=== PATIENT | female | born 2000 | race Caucasian/White ===

== ENCOUNTER 2023-01-03 17:35 | Inpatient (IN) ==
[2023-01-03] MEDS ORDERED: Patient's ALLERGY Info needs ENTERED SCH (18:00)
--- NOTE | 2023-01-03 18:18 | ED Triage Note ---
Date of Service January 03, 2023 History of Present Illness This patient was briefly evaluated while in triage. An abbreviated physical exam was performed. This patient is a 22-year-old Female who presents to the ED for evaluation of nausea and diarrhea. States symptoms started today.She reports 3 episodes of black watery stool. Notes diffuse abdominal cramping. She denies fevers/chills, vomiting, chest pain, SOB, urinary symptoms. Physical Exam Constitutional: alert and oriented x3. no acute distress. HEENT: normocephalic, atraumatic. normal conjunctiva.PERRLA. EOM's grossly intact. Respiratory: lungs are clear to auscultation without wheezes, rhonchi, or rales bilaterally. equal chest rise. normal respiratory effort, no accessory muscle use. Cardiovascular: normal heart sounds without murmur. regular rate and rhythm. GI: abdomen is soft, nondistended. Mild diffuse abdominal tenderness. No palpable masses. No rebound tenderness or guarding. MSK: moves all 4 extremities spontaneously Psych:appropriate mood and affect. Initial orders for labs and / or imaging were placed and patient was placed in the waiting area until a bed is available. Please see further documentation for the full ED course.
[2023-01-03] MEDS ORDERED: SODIUM CHLORIDE 0.9% 1000ML 2,000 ML IV ONE (19:11)
[2023-01-03] MEDS ORDERED: PANTOprazole 80 MG in DEXTROSE 5% 100 ML IV ONE (19:11)
[2023-01-03] MEDS ORDERED: METOCLOPRAMIDE HCL INJ 5 MG/ML 2 ML VIAL IV STA (19:11)
[2023-01-03] MEDS ORDERED: PANTOPRAZOLE BOLUS/DRIP 1 EACH IV STA (19:11)
[2023-01-03] MEDS ORDERED: SODIUM CHLORIDE 0.9% 250 ML IV PRN (19:11)
[2023-01-03 19:14] LABS: Basophils # (auto) 0.05 K/uL (0-0.2); Basophils % (auto) 0.3 %; Eosinophils # (auto) 0.01 K/uL (0-0.50); Eosinophils % (auto) 0.1 %; Hematocrit (blood only) 39.5 % (37.0-47.0); Hemoglobin 13.6 g/dl (12.0-16.0); Immature Granulocytes # (auto) 0.06 K/uL (0.01-0.20); Immature Granulocytes % (auto) 0.3 %; Lymphocytes # (auto) 2.25 K/uL (1.2-3.4); Lymphocytes % (auto) 12.7 %; Mean Corpuscular Hemoglobin 29.9 pg (25.0-34.0); Mean Corpuscular Hgb Conc 34.4 g/dL (32.0-36.0); Mean Corpuscular Volume 86.8 fL (80.0-100.0); Mean Platelet Volume 10.2 fL (9.4-12.4); Monocytes # (auto) 0.93 K/uL (0.11-0.59); Monocytes % (auto) 5.2 %; Neutrophils # (auto) 14.42 K/uL (1.40-6.50); Neutrophils % (auto) 81.4 %; Platelet Count 270 K/uL (130-400); RDW Coefficient of Variation 12.3 % (11.5-14.5); RDW Standard Deviation 38.9 fL (36.4-46.3); Red Blood Count 4.55 M/uL (4.20-5.40); White Blood Count 17.72 K/ul (4.8-10.8)
--- NOTE | 2023-01-03 19:17 | Emergency Department Note ---
Impression & Plan GI bleed, Leukocytosis ED Provider Note NAME: LEOBARDO DEXTER AGE: 22 SEX: F : 2000 ARRIVES VIA: Walk-In INFORMANT: Patient ED PROVIDER(S): Sanya Bourgeois DO CHIEF COMPLAINT: N/V/D HPI: Patient is a 20-year-old female who presents to the ER for nausea, vomiting, diarrhea which started earlier today. She notes that this started while working at [employer]. She notes her stools are black and her vomit is black. She denies any headache or change in vision. No chest pain or shortness of breath. No belly pain but admits to persistent vomiting and diarrhea. No dysuria, urgency, or frequency. Last menstrual period was about a week ago. She denies any steroid or NSAID use. She drinks about a drink every other night. No control. PAST MEDICAL HISTORY:See Below PAST SURGICAL HISTORY:See Below FAMILY HISTORY:See Below SOCIAL HISTORY:See Below HOME MEDICATIONS:See Below ALLERGIES:See Below VITALS:See Below PHYSICAL EXAMINATION: GENERAL: Sitting up in bed, alert, slightly ill-appearing, vomiting black material EYE EXAM: normal conjunctiva. OROPHARYNX: mucous membranes are moist NECK: supple, no nuchal rigidity, no adenopathy, non-tender LUNGS: Clear to auscultation. Normal chest wall mechanics HEART: no murmurs, S1 normal and S2 normal ABDOMEN: abdomen soft, non-tender, normo-active bowel sounds, no masses, no rebound or guarding. UPPER EXTREMITIES: upper extremities are grossly normal. LOWER EXTREMITIES: No pitting edema. NEURO EXAM: Normal sensorium, cranial nerves II-XII grossly intact, normal speech, no gross weakness of arms, no gross weakness of legs. MEDICAL DECISION MAKING: Patient 20-year-old female who presents ER for above-stated complaint. IV was established blood work was obtained. External records were reviewed. Labs show leukocytosis 17,000. No significant anemia. INR was unremarkable. BMP with mild hyponatremia 134. LFTs bilirubin was unremarkable. Lipase was normal. hCG was negative. UA was clean. was negative. Stool culture was negative. COVID-negative. Patient was typed and crossed for 2 units of PRBCs as she vomited about 500 cc of dark vomit. . CT abdomen pelvis showed no acute pathology. She was placed on Protonix drip and bolus. She was given 2 L of IV fluids. 2 large-bore IVs were placed. Contacted gastroenterology. He has an upper GI bleed. As she likely has an upper GI bleed. Discussed with Dr. Galvez and he agreed with admission and he will follow and evaluate the patient in the morning unless the status changes. Discussed with the hospitalist for further evaluation management treatment. Triage Nursing notes reviewed. Limited review of prior medical records performed Vital Signs: reviewed and remarkable for tachy Differential diagnosis: Differential diagnoses includes but is not limited to gastritis, peptic ulcer disease, GERD, gallbladder disease, pancreatitis, small bowel obstruction, appendicitis, diverticulitis, hernia, urinary tract infection, torsion, [/ectopic (if female)], perforation, trauma, infectious. ER treatment provided: See below Diagnostics interpreted by me include EKG and cardiac monitoring as listed below: -Cardiac Monitoring: An order was placed for continuous cardiac monitoring. The monitor shows a rate of 115 with sinus rhythm. -ECG: none -Laboratory studies:Interpreted by me as stated above in MDM and shown below. Imaging studies: Xrays: As interpreted by me:none CTs show: CT abdomen pelvis per my read showed no obvious obstruction Consultation(s): As described in MDM Procedures:none Critical Care: None Past Med/Surg History Social History Smoking Status: Current every day smoker Second Hand Exposure: No; Do You Dip or Chew Tobacco: No; Tobacco Cessation Education Requested by Patient: No Hx Alcohol Use: Yes Alcohol type: beer Hx Substance Use: Yes Preferred Language: Persian Communication Ability: Effective Cutter Grinder Required: No Beliefs That Will Affect Care: None Current Living Situation: Alone Other Information That Helps Us Care for You: No Feels Safe at Home: Yes Safety Concerns: Feels Safe At This Time Assistive Devices: Glasses Allergies Allergies Allergy/AdvReac Type Severity Reaction Status Date / Time gabapentin AdvReac Insomnia Verified 01/03/23 22:46 Home Meds Home Medications Medication Instructions Recorded Confirmed No Known Home Medications 01/03/23 01/03/23 Results & Data (ED) Vital Signs Vital Signs - 24 hr 01/03/23 18:14 01/03/23 19:16 01/03/23 19:31 Temperature 36.5 C Temperature Source Temporal Artery Scan Pulse Rate 120 H 104 H 89 Respiratory Rate 16 20 Respiratory Effort / Characteristics Non-Labored Respiratory Depth Normal Blood Pressure 135/97 108/69 Blood Pressure Mean 109 82 Pulse Oximetry 99 100 Oxygen Delivery Method Room Air Room Air Sepsis Recent Fever Within 48 Hours No Sepsis New/Unexplained Change in Mental Status No Sepsis Action Taken by Nursing No Action Required 01/03/23 20:04 Temperature Temperature Source Pulse Rate 89 Respiratory Rate 17 Respiratory Effort / Characteristics Respiratory Depth Blood Pressure 114/78 Blood Pressure Mean 90 Pulse Oximetry 99 Oxygen Delivery Method Room Air Sepsis Recent Fever Within 48 Hours Sepsis New/Unexplained Change in Mental Status Sepsis Action Taken by Nursing Laboratory Data 01/03/23 18:45 01/03/23 18:45 Lab Results 01/03/23 01/03/23 01/03/23 Range/Units 18:45 18:45 18:45 WBC 17.72 H (4.8-10.8) K/ul RBC 4.55 (4.20-5.40) M/uL Hgb 13.6 (12.0-16.0) g/dl Hct 39.5 (37.0-47.0) % MCV 86.8 (80.0-100.0) fL MCH 29.9 (25.0-34.0) pg MCHC 34.4 (32.0-36.0) g/dL RDW Std Deviation 38.9 (36.4-46.3) fL RDW Coeff of Geri 12.3 (11.5-14.5) % Plt Count 270 (130-400) K/uL MPV 10.2 (9.4-12.4) fL Immature Gran % (Auto) 0.3 % Neut % (Auto) 81.4 % Lymph % (Auto) 12.7 % Kidder % (Auto) 5.2 % Eos % (Auto) 0.1 % Baso % (Auto) 0.3 % Neut # (Auto) 14.42 H (1.40-6.50) K/uL Lymph # (Auto) 2.25 (1.2-3.4) K/uL Kidder # (Auto) 0.93 H (0.11-0.59) K/uL Eos # (Auto) 0.01 (0-0.50) K/uL Baso # (Auto) 0.05 (0-0.2) K/uL Immature Gran # (Auto) 0.06 (0.01-0.20) K/uL PT (9.0-12.0) Seconds INR (0.9-1.1) Sodium 134 L (136-145) mmol/L Potassium 3.6 (3.5-5.1) mmol/L Chloride 102 (98-107) mmol/L Carbon Dioxide 25 (21-32) mmol/L Anion Gap 7 (3-11) BUN 23 (6-23) mg/dl Creatinine 0.54 L (0.6-1.2) mg/dl Est Cr Clr Drug Dosing 139.3 ml/min Est GFR ( Amer) > 150.0 ml/min Est GFR (Non-Af Amer) 133.9 ml/min BUN/Creatinine Ratio 42.6 H (10-20) Glucose 93 (70-99(Fasting)) mg/dl Calcium 9.1 (8.6-10.3) mg/dl Total Bilirubin 0.4 (0.2-1.0) mg/dl AST 16 (13-39) U/L ALT 10 (7-52) U/L Alkaline Phosphatase 63 (34-104) U/L Total Protein 7.6 (6.0-8.3) gm/dl Albumin 5.0 (3.4-5.0) gm/dl Globulin 2.6 (2.5-4.0) gm/dl Albumin/Globulin Ratio 1.9 (0.9-2) Lipase 6 L (11-82) U/L HCG, Qual Negative (Negative) Urine Color Urine Appearance (Clear) Urine pH (4.5-7.5) Ur Specific Channing (1.000-1.030) Urine Protein (Negative) Urine Glucose (UA) (Negative) Urine Ketones (Negative) Urine Blood (Negative) Urine Nitrite (Negative) Urine Bilirubin (Negative) Urine Urobilinogen (Negative) Ur Leukocyte Esterase (Negative) Urine WBC (Auto) (0-5) /hpf Urine RBC (Auto) (0-4) /hpf U Hyaline Cast (Auto) (0-5) /lpf U Epithel Cells (Auto) (0-5) /lpf Urine Bacteria (Auto) (Negative) Stl C. cayetanensis PCR (NotDetected) Stool Rotavirus A PCR (NotDetected) Stl Adenov F 40/41 PCR (NotDetected) Stool Astrovirus (PCR) (NotDetected) Stool Campylobacter PCR (NotDetected) Stool Cryptosporidium PCR (NotDetected) Stl E.coli Shiga Tox PCR (NotDetected) Stl Enterotoxigenic E PCR (NotDetected) Stool EPEC (PCR) (NotDetected) Stool EAEC (PCR) (NotDetected) Stl E. histolytica PCR (NotDetected) Stool Giardia Lamblia PCR (NotDetected) Stool Salmonella PCR (NotDetected) Stool Sapovirus (PCR) (NotDetected) Stl P. shigelloides PCR (NotDetected) Stl Shigella/EIEC PCR (NotDetected) St Y.enterocolitica PCR (NotDetected) Stool Vibrio (PCR) (NotDetected) Stl Vibrio cholerae PCR (NotDetected) Stl Norovirus GI/GII PCR (NotDetected) Blood Type Antibody Screen Crossmatch 01/03/23 01/03/23 01/03/23 Range/Units 18:45 19:47 20:11 WBC (4.8-10.8) K/ul RBC (4.20-5.40) M/uL Hgb (12.0-16.0) g/dl Hct (37.0-47.0) % MCV (80.0-100.0) fL MCH (25.0-34.0) pg MCHC (32.0-36.0) g/dL RDW Std Deviation (36.4-46.3) fL RDW Coeff of Geri (11.5-14.5) % Plt Count (130-400) K/uL MPV (9.4-12.4) fL Immature Gran % (Auto) % Neut % (Auto) % Lymph % (Auto) % Kidder % (Auto) % Eos % (Auto) % Baso % (Auto) % Neut # (Auto) (1.40-6.50) K/uL Lymph # (Auto) (1.2-3.4) K/uL Kidder # (Auto) (0.11-0.59) K/uL Eos # (Auto) (0-0.50) K/uL Baso # (Auto) (0-0.2) K/uL Immature Gran # (Auto) (0.01-0.20) K/uL PT 11.9 (9.0-12.0) Seconds INR 1.1 (0.9-1.1) Sodium (136-145) mmol/L Potassium (3.5-5.1) mmol/L Chloride (98-107) mmol/L Carbon Dioxide (21-32) mmol/L Anion Gap (3-11) BUN (6-23) mg/dl Creatinine (0.6-1.2) mg/dl Est Cr Clr Drug Dosing ml/min Est GFR ( Amer) ml/min Est GFR (Non-Af Amer) ml/min BUN/Creatinine Ratio (10-20) Glucose (70-99(Fasting)) mg/dl Calcium (8.6-10.3) mg/dl Total Bilirubin (0.2-1.0) mg/dl AST (13-39) U/L ALT (7-52) U/L Alkaline Phosphatase (34-104) U/L Total Protein (6.0-8.3) gm/dl Albumin (3.4-5.0) gm/dl Globulin (2.5-4.0) gm/dl Albumin/Globulin Ratio (0.9-2) Lipase (11-82) U/L HCG, Qual (Negative) Urine Color Yellow Urine Appearance Cloudy A (Clear) Urine pH 6.0 (4.5-7.5) Ur Specific Channing 1.018 (1.000-1.030) Urine Protein Negative (Negative) Urine Glucose (UA) Negative (Negative) Urine Ketones 2+ H (Negative) Urine Blood Trace H (Negative) Urine Nitrite Negative (Negative) Urine Bilirubin Negative (Negative) Urine Urobilinogen Negative (Negative) Ur Leukocyte Esterase Negative (Negative) Urine WBC (Auto) 1-5 (0-5) /hpf Urine RBC (Auto) 0-4 (0-4) /hpf U Hyaline Cast (Auto) 0 (0-5) /lpf U Epithel Cells (Auto) >30 H (0-5) /lpf Urine Bacteria (Auto) Negative (Negative) Stl C. cayetanensis PCR (NotDetected) Stool Rotavirus A PCR (NotDetected) Stl Adenov F 40/41 PCR (NotDetected) Stool Astrovirus (PCR) (NotDetected) Stool Campylobacter PCR (NotDetected) Stool Cryptosporidium PCR (NotDetected) Stl E.coli Shiga Tox PCR (NotDetected) Stl Enterotoxigenic E PCR (NotDetected) Stool EPEC (PCR) (NotDetected) Stool EAEC (PCR) (NotDetected) Stl E. histolytica PCR (NotDetected) Stool Giardia Lamblia PCR (NotDetected) Stool Salmonella PCR (NotDetected) Stool Sapovirus (PCR) (NotDetected) Stl P. shigelloides PCR (NotDetected) Stl Shigella/EIEC PCR (NotDetected) St Y.enterocolitica PCR (NotDetected) Stool Vibrio (PCR) (NotDetected) Stl Vibrio cholerae PCR (NotDetected) Stl Norovirus GI/GII PCR (NotDetected) Blood Type O Positive Antibody Screen NEGATIVE Crossmatch See Detail 01/03/23 Range/Units 20:11 WBC (4.8-10.8) K/ul RBC (4.20-5.40) M/uL Hgb (12.0-16.0) g/dl Hct (37.0-47.0) % MCV (80.0-100.0) fL MCH (25.0-34.0) pg MCHC (32.0-36.0) g/dL RDW Std Deviation (36.4-46.3) fL RDW Coeff of Geri (11.5-14.5) % Plt Count (130-400) K/uL MPV (9.4-12.4) fL Immature Gran % (Auto) % Neut % (Auto) % Lymph % (Auto) % Kidder % (Auto) % Eos % (Auto) % Baso % (Auto) % Neut # (Auto) (1.40-6.50) K/uL Lymph # (Auto) (1.2-3.4) K/uL Kidder # (Auto) (0.11-0.59) K/uL Eos # (Auto) (0-0.50) K/uL Baso # (Auto) (0-0.2) K/uL Immature Gran # (Auto) (0.01-0.20) K/uL PT (9.0-12.0) Seconds INR (0.9-1.1) Sodium (136-145) mmol/L Potassium (3.5-5.1) mmol/L Chloride (98-107) mmol/L Carbon Dioxide (21-32) mmol/L Anion Gap (3-11) BUN (6-23) mg/dl Creatinine (0.6-1.2) mg/dl Est Cr Clr Drug Dosing ml/min Est GFR ( Amer) ml/min Est GFR (Non-Af Amer) ml/min BUN/Creatinine Ratio (10-20) Glucose (70-99(Fasting)) mg/dl Calcium (8.6-10.3) mg/dl Total Bilirubin (0.2-1.0) mg/dl AST (13-39) U/L ALT (7-52) U/L Alkaline Phosphatase (34-104) U/L Total Protein (6.0-8.3) gm/dl Albumin (3.4-5.0) gm/dl Globulin (2.5-4.0) gm/dl Albumin/Globulin Ratio (0.9-2) Lipase (11-82) U/L HCG, Qual (Negative) Urine Color Urine Appearance (Clear) Urine pH (4.5-7.5) Ur Specific Channing (1.000-1.030) Urine Protein (Negative) Urine Glucose (UA) (Negative) Urine Ketones (Negative) Urine Blood (Negative) Urine Nitrite (Negative) Urine Bilirubin (Negative) Urine Urobilinogen (Negative) Ur Leukocyte Esterase (Negative) Urine WBC (Auto) (0-5) /hpf Urine RBC (Auto) (0-4) /hpf U Hyaline Cast (Auto) (0-5) /lpf U Epithel Cells (Auto) (0-5) /lpf Urine Bacteria (Auto) (Negative) Stl C. cayetanensis PCR Not Detected (NotDetected) Stool Rotavirus A PCR Not Detected (NotDetected) Stl Adenov F 40/41 PCR Not Detected (NotDetected) Stool Astrovirus (PCR) Not Detected (NotDetected) Stool Campylobacter PCR Not Detected (NotDetected) Stool Cryptosporidium PCR Not Detected (NotDetected) Stl E.coli Shiga Tox PCR Not Detected (NotDetected) Stl Enterotoxigenic E PCR Not Detected (NotDetected) Stool EPEC (PCR) Not Detected (NotDetected) Stool EAEC (PCR) Not Detected (NotDetected) Stl E. histolytica PCR Not Detected (NotDetected) Stool Giardia Lamblia PCR Not Detected (NotDetected) Stool Salmonella PCR Not Detected (NotDetected) Stool Sapovirus (PCR) Not Detected (NotDetected) Stl P. shigelloides PCR Not Detected (NotDetected) Stl Shigella/EIEC PCR Not Detected (NotDetected) St Y.enterocolitica PCR Not Detected (NotDetected) Stool Vibrio (PCR) Not Detected (NotDetected) Stl Vibrio cholerae PCR Not Detected (NotDetected) Stl Norovirus GI/GII PCR Not Detected (NotDetected) Blood Type Antibody Screen Crossmatch Administered Medications Pantoprazole Sodium 40 mg/ (Dextrose) 100 mls @ 20 mls/hr IV Q5H DEENA Stop: 02/02/23 19:29 Last Admin: 01/03/23 20:02 Dose: 8 mg/hr, 20 mls/hr Documented By: SILVINO Lactated Ringer's (Lr) 1,000 mls @ 100 mls/hr IV .Q10H DEENA Stop: 01/04/23 06:44 Last Admin: 01/03/23 21:21 Dose: 100 mls/hr Documented By: MILDRED Discontinued Medications Sodium Chloride (Nss 1000ml) 2,000 mls @ 999 mls/hr IV .Q2H1M ONE Stop: 01/03/23 21:11 Last Infusion: 01/03/23 21:20 Dose: 0 mls/hr Documented By: Admin: 01/03/23 19:19 Dose: 999 mls/hr Documented By: MILDRED Pantoprazole Sodium (Protonix Bolus/Drip) 0 mls @ 1 mls/hr IV ONE STA Stop: 01/03/23 19:12 Last Admin: 01/03/23 20:07 Dose: Not Given Documented By: MILDRED Pantoprazole Sodium 80 mg/ (Dextrose) 120 mls @ 400 mls/hr IV NOW ONE Stop: 01/03/23 19:28 Last Infusion: 01/03/23 19:55 Dose: 0 mls/hr Documented By: Admin: 01/03/23 19:34 Dose: 400 mls/hr Documented By: MILDRED Ioversol (Optiray 320 100ml) 89 ml IV ONCE ONE Stop: 01/03/23 21:09 Last Admin: 01/03/23 21:08 Dose: 89 ml Documented By: DENNIS Metoclopramide HCl (Metoclopramide Hcl Inj 5 Mg/Ml 2 Ml Vial) 10 mg IV NOW STA Stop: 01/03/23 19:12 Last Admin: 01/03/23 19:34 Dose: 10 mg Documented By: MILDRED Ondansetron HCl (Ondansetron Inj 2 Mg/Ml 2 Ml Vial) 4 mg IV NOW STA Stop: 01/03/23 22:40 Last Admin: 01/03/23 22:58 Dose: Not Given Documented By: MILDRED Ondansetron HCl (Ondansetron Inj 2 Mg/Ml 2 Ml Vial) Confirm Administered Dose 4 mg .ROUTE .STK-MED ONE Stop: 01/03/23 22:41 Last Admin: 01/03/23 22:42 Dose: 4 mg Documented By: KARLA Imaging Data Radiologist's Impression: Abdomen/Pelvis CT 01/03/23 19:11 Exam(s): CT ABDOMEN + PELVIS With Contrast IV Amt: 89 ml optiray 320 EXAM: CT Abdomen and Pelvis With Intravenous Contrast CLINICAL HISTORY: Reason for exam: Vomiting blood upper GI bleed. TECHNIQUE: Axial computed tomography images of the abdomen and pelvis with intravenous contrast. CTDI is 8.51 mGy and DLP is 370.12 mGy-cm. Automated exposure control was utilized for the study. A dose lowering technique was utilized adhering to the principles of ALARA. CONTRAST: Patient received 89 ml optiray 320 of IV contrast COMPARISON: No relevant prior studies available. FINDINGS: Lung bases: Unremarkable. No mass. No consolidation. ABDOMEN: Liver: Unremarkable. No mass. Gallbladder and bile ducts: Unremarkable. No calcified stones. No ductal dilation. Pancreas: Unremarkable. No mass. No ductal dilation. Spleen: Unremarkable. No splenomegaly. Adrenals: Unremarkable. No mass. Kidneys and ureters: There are several scattered simple cysts within the kidneys measuring up to 2.1 cm on the right. No follow-up is required. No hydronephrosis. Stomach and bowel: Bowel loops are nondilated. Colon is mostly contracted with mild diffuse wall thickening suggesting mild colitis. The stomach is unremarkable. PELVIS: Appendix: The appendix is normal. Bladder: Slight urinary bladder wall thickening could be due to a completely distended status versus cystitis. Reproductive: Unremarkable as visualized. ABDOMEN and PELVIS: Intraperitoneal space: There is enlargement of the left ovary measuring up to 4 cm with a probable 1.7 cm follicle within it. There is a small moderate of free fluid in the cul-de-sac. Consider ruptured ovarian follicle. No free air. Bones/joints: No acute fracture. No dislocation. Soft tissues: Unremarkable. Vasculature: Unremarkable. No abdominal aortic aneurysm. Lymph nodes: Unremarkable. No enlarged lymph nodes. IMPRESSION: 1. Bowel loops are nondilated. Colon is mostly contracted with mild diffuse wall thickening suggesting mild colitis. The stomach is unremarkable. No GI hemorrhage is identified. 2. There is enlargement of the left ovary measuring up to 4 cm with a probable 1.7 cm follicle within it. There is a small amount of free fluid in the cul-de-sac. Consider ruptured ovarian follicle. 3. Slight urinary bladder wall thickening could be due to a completely distended status versus cystitis. Electronically signed by: Howard Hercules MD 01/03/23 22:05 PM Discharge Plan Visit Data Chief Complaint: Diarrhea Stated Complaint: DIARRHEA, NEAR SYNCOPE, TACHYCARDIA ED Provider: Sanya Bourgeois Discharge Problem: GI bleed, Leukocytosis Patient Disposition: Admitted As Inpatient Discharge Instructions Interventions: ED Discharge Assessment Last Done: 01/03/23 22:57
[2023-01-03 19:28] LABS: Alanine Aminotransferase 10 U/L (7-52); Albumin Globulin Ratio 1.9 (0.9-2); Alkaline Phosphatase 63 U/L (34-104); Anion Gap 7 (3-11); Aspartate Aminotransferase 16 U/L (13-39); BUN Creatinine Ratio 42.6 (10-20); Bilirubin,Total 0.4 mg/dl (0.2-1.0); Blood Urea Nitrogen 23 mg/dl (6-23); Calcium 9.1 mg/dl (8.6-10.3); Carbon Dioxide 25 mmol/L (21-32); Chloride 102 mmol/L (98-107); Creatinine Clr Calc Pharmacy 139.3 ml/min; Est GFR (African American) > 150.0 ml/min; Est GFR (Non-African American) 133.9 ml/min; Globulin 2.6 gm/dl (2.5-4.0); Glucose 93 mg/dl (70-99(Fasting)); Lipase 6 U/L (11-82); Potassium 3.6 mmol/L (3.5-5.1); Sodium 134 mmol/L (136-145); Total Protein 7.6 gm/dl (6.0-8.3)
[2023-01-03 19:30] LABS: Pregnancy Test, Serum Negative (Negative)
[2023-01-03] MEDS: PANTOprazole 40 MG in DEXTROSE 5% 100 ML IV SCH (20:02)
--- NOTE | 2023-01-03 20:19 | History & Physical Report ---
Date of Service January 03, 2023 Assessment & Plan (1) GI bleed: Plan: -Admit to the PCU on tele -Currently stable -Developed sudden onset of epigastric abd pain and nausea with subsequent black bowel movements -Had multiple episodes of black emesis after ED arrival which was witnessed by ED staff -No previous GI history, no NSAID use, social drinker and daily Marijuana user -Protonix drip started in the ED, continue -GI consulted and will see her tomorrow, keep NPO until they see her -Will monitor CBC q6h moving forward, hgb stable on arrival -Type and screen, as-well-as 2 units PRBC if needed -Stool panel obtained and in process, continue to follow -Will continue her on maintenance LR overnight while NPO -Order placed for 2 large bore IV's -CT of the abd/pelvis with IV con ordered, will follow -BL SCD's for DVT PPX -AM CMP, Mag -Will obtain INR on admission and will trend tomorrow (2) Leukocytosis: Plan: -Likely reactive at this time -No fevers yet, follow fever curve Plan The patient was discussed with Dr. Hercules at the time of the admission History of Present Illness Chief Complaint: Black stool and vomit Primary Care Provider: NO PCP Inga is a 22 year old female with with no significant PMH who presented to the [facility] ED on 01/03/23 with complaints of black stool and vomit. In the ED the patient was tachycardic with HR in the low 100's but otherwise stable. Labs were significant for a leukocytosis of 17 with left shift of 14, stable Hgb of 13, sodium of 134. Per discussions with the ED staff, the patient had approximately 500 cc of black emesis after arrival. They spoke with Gastroenterology who will see the patient tomorrow. Prior to admission all CT machines were down, a CT of the abd/pelvis with IV con had been ordered prior to admission. Prior to admission the patient was started on a Protonix drip, ordered 2L NSS bolus. At the time of the exam the patient was sitting in bed in no acute distress with her friend sitting bedside. The patient states that she was in her normal state of health. She was at work this afternoon when she started to develop epigastric abd pain, nausea, and diaphoresis. She went home and had two bowel movements which she described as watery and black. Her abd pain started in the epigastric region but has moved to the lower abdomen at the time of the exam. She denies a previous hx of GI bleeds, ulcers, or other PMH besides some mental health issues in the past. At one point she was on Lamictal, gabapentin, and Ativan, put is not on prescription medications at this time. She drinks alcohol socially, with her last drink 2 nights ago. She denies NSAID use or pepto Bismol use. She does smoke marijuana daily and states that she has been diagnosed with Cannabis hyperemesis in the past. She denies any other recreational drug use. She denies recent fever, chills, sore throat, chest pain, SOB, cough, dysuria, hematuria, LE swelling and recent trauma. Please refer to Dr. Hercules's attestation for any changes to the treatment plan Allergies Allergy/AdvReac Type Severity Reaction Status Date / Time gabapentin AdvReac Insomnia Verified 01/03/23 22:46 Home Medications Medication Instructions Recorded Confirmed Type No Known Home Medications 01/03/23 01/03/23 History Past Med/Surg History Social History Smoking Status: Current every day smoker Second Hand Exposure: No; Do You Dip or Chew Tobacco: No; Tobacco Cessation Education Requested by Patient: No Hx Alcohol Use: Yes Alcohol type: beer Hx Substance Use: Yes Preferred Language: Arabic Communication Ability: Effective Poultry Packer Required: No Beliefs That Will Affect Care: None Current Living Situation: Alone Other Information That Helps Us Care for You: No Feels Safe at Home: Yes Safety Concerns: Feels Safe At This Time Assistive Devices: Glasses Physical Exam Physical Exam: Physical Exam: General: In no acute distress, stated age, well-nourished, good hygiene, non- toxic appearing HEENT: Normocephalic, atraumatic, no scleral icterus, pupils around round, symmetrical, and reactive to light, moist mucus membranes, trachea midline, no thyromegaly Chest/Pulm: No respiratory distress, symmetrical chest expansion, clear breath sounds throughout Cardiac: RRR, no murmurs noted Abdomen: Negative for ascites and bruising, hyperactive bowel sounds, soft, non-tender to palpation throughout Musculoskeletal: Symmetrical and without signs of acute trauma, upper and lower extremities with full ROM, no atrophy, spasticity, or flaccidity Extremities: Radial, dorsalis pedis, and posterior tibial pulses are intact and symmetrical, no edema noted in the BL LE's Skin: Warm, dry, no rashes , lesions, or scars noted Neuro: Alert and oriented to person, place, month, year, and president, no focal defects, no tremors noted Psych: No acute distress, calm and cooperative during the exam Results & Data Results & Data Vital Signs (Past 12 Hours) Vital Signs Temp Pulse Resp BP Pulse Ox O2 Del Method 01/03/23 20:04 89 17 114/78 99 Room Air 01/03/23 19:31 89 20 108/69 100 Room Air 01/03/23 19:16 104 H 01/03/23 18:14 36.5 C 120 H 16 135/97 99 Room Air Laboratory Results Abnormal lab results 01/03/23 01/03/23 01/03/23 Range/Units 18:45 18:45 19:47 WBC 17.72 H (4.8-10.8) K/ul Neut # (Auto) 14.42 H (1.40-6.50) K/uL [place] # (Auto) 0.93 H (0.11-0.59) K/uL Sodium 134 L (136-145) mmol/L Creatinine 0.54 L (0.6-1.2) mg/dl BUN/Creatinine Ratio 42.6 H (10-20) Lipase 6 L (11-82) U/L Urine Appearance (Clear) Urine Ketones (Negative) Urine Blood (Negative) U Epithel Cells (Auto) (0-5) /lpf Crossmatch See Detail 01/03/23 Range/Units 20:11 WBC (4.8-10.8) K/ul Neut # (Auto) (1.40-6.50) K/uL [place] # (Auto) (0.11-0.59) K/uL Sodium (136-145) mmol/L Creatinine (0.6-1.2) mg/dl BUN/Creatinine Ratio (10-20) Lipase (11-82) U/L Urine Appearance Cloudy A (Clear) Urine Ketones 2+ H (Negative) Urine Blood Trace H (Negative) U Epithel Cells (Auto) >30 H (0-5) /lpf Crossmatch Code Status & VTE Plan Code Status Full code VTE Prophylaxis Plan VTE Prophylaxis will be ordered: Yes Supervising Physician Co-Signing Physician Notes Patient seen and examined, chart reviewed, case discussed with ANDREW Mendenhall and I agree with the assessment and plan as documented above. In brief, patient is a 22yo female presenting with nausea, black stool and emesis. Symptoms came on rather suddenly this afternoon while the patient was at work. She does not take NSAIDS, drinks EtOH infrequently, no prior history of GIB, however, does have frequent stomach "burning" in the morning and thinks that she may have ulcers. Has never been formally diagnosed with GERD or Ulcers - no prior EGDs. In the ER she was tachycardic. Did have 500mL of black emesis. On exam she is afebrile, HD stable, NAD. HR has improved - now 70-80's Skin - no rash HEENT -MMM, Neck supple Heart - +S1/S2, regular, no m/r/g Llungs - CTA Abd - soft, mildly tender in epigastric region without rebound/guarding or peritonitis Ext - warm, well perfused, [address] Labs and images reviewed. Hgb=13.6, Hct=39.5, Xqx=707 INR=1.1, normal LFTs BUN=23 with elevated BUN:Cr of 42.6 CT of the abdomen with mild diffuse colonic wall thickening suggesting mild colitis. No GI hemorrhage identified. Enlargement of L ovary with probable follicle, possible ruptured ovarian follicle. Assessment/Plan 22yo female presenting with black stool and emesis - concern for possible UGIB. Tachycardic on arrival now with normal HR. BP is stable H/H WNL. Normal platelets, INR and liver studies. No excessive NSAID or EtOH use reported. -Admit to PCU -Check hemoccult stool -Maintain 2 large bore PIVs -Continue protonix gtt -GI consultation appreciated -Trend CBC - transfusion for ongoing bleed, symptomatic anemia or Hgb <7 -Remainder of plan as above PG Care Time/CCT Total # of Minutes Spent Total Time Spent with Patient: Total time spent is greater than 50% in coordination of care (as documented) at patient's floor/unit and/or counseling patient: Coding [place] [address] INT INP/OBS CARE 3/75MIN Patient Type Established Medical Decision Making High Complexity Diagnoses GI bleed K92.2 Leukocytosis D72.829
[2023-01-03 20:41] LABS: Appearance Urine Cloudy (Clear); Bacteria Urine Automated Negative (Negative); Bilirubin Urine Negative (Negative); Blood Urine Trace (Negative); Cast Urine Automated 0 /lpf (0-5); Color Urine Yellow; Epithelial Cell Urine Auto >30 /lpf (0-5); Glucose Urine UA Negative (Negative); Ketones Urine 2+ (Negative); Leukocyte Esterase Urine Negative (Negative); Nitrite Urine Negative (Negative); Protein Urine Negative (Negative); RBC Urine Automated 0-4 /hpf (0-4); Specific Gravity Urine 1.018 (1.000-1.030); Urobilinogen Urine Negative (Negative)
[2023-01-03] MEDS ORDERED: LACTATED RINGER'S 1,000 ML IV SCH (20:45)
[2023-01-03] MEDS ORDERED: OPTIRAY 320 100ml IV ONE (21:08)
[2023-01-03 21:32] LABS: INR 1.1 (0.9-1.1); Prothrombin Time 11.9 Seconds (9.0-12.0)
[2023-01-03 21:47] LABS: Adenovirus F 40/41 PCR Not Detected (NotDetected); Astrovirus PCR Not Detected (NotDetected); Campylobacter PCR Not Detected (NotDetected); Cryptosporidium PCR Not Detected (NotDetected); Cyclospora cayetanensis PCR Not Detected (NotDetected); Entamoeba histolytica PCR Not Detected (NotDetected); Enteroaggregative E.coli(EAEC) Not Detected (NotDetected); Enteropathogenic E.coli (EPEC) Not Detected (NotDetected); Enterotoxigenic E.coli (ETEC) Not Detected (NotDetected); Giardia lamblia PCR Not Detected (NotDetected); Norovirus GI/GII PCR Not Detected (NotDetected); Plesiomonas shigelloides PCR Not Detected (NotDetected); Rotavirus A PCR Not Detected (NotDetected); Salmonella PCR Not Detected (NotDetected); Sapovirus PCR Not Detected (NotDetected); Shiga-like Toxin E.coli (STEC) Not Detected (NotDetected); Shigella/Enteroinvasive E.coli Not Detected (NotDetected); Vibrio cholerae PCR Not Detected (NotDetected); Vibrio species PCR Not Detected (NotDetected); Yersinia enterocolitica PCR Not Detected (NotDetected)
--- NOTE | 2023-01-03 22:06 | CT Scan Report ---
Exam(s): CT ABDOMEN + PELVIS With Contrast IV Amt: 89 ml optiray 320 EXAM: CT Abdomen and Pelvis With Intravenous Contrast CLINICAL HISTORY: Reason for exam: Vomiting blood upper GI bleed. TECHNIQUE: Axial computed tomography images of the abdomen and pelvis with intravenous contrast. CTDI is 8.51 mGy and DLP is 370.12 mGy-cm. Automated exposure control was utilized for the study. A dose lowering technique was utilized adhering to the principles of ALARA. CONTRAST: Patient received 89 ml optiray 320 of IV contrast COMPARISON: No relevant prior studies available. FINDINGS: Lung bases: Unremarkable. No mass. No consolidation. ABDOMEN: Liver: Unremarkable. No mass. Gallbladder and bile ducts: Unremarkable. No calcified stones. No ductal dilation. Pancreas: Unremarkable. No mass. No ductal dilation. Spleen: Unremarkable. No splenomegaly. Adrenals: Unremarkable. No mass. Kidneys and ureters: There are several scattered simple cysts within the kidneys measuring up to 2.1 cm on the right. No follow-up is required. No hydronephrosis. Stomach and bowel: Bowel loops are nondilated. Colon is mostly contracted with mild diffuse wall thickening suggesting mild colitis. The stomach is unremarkable. PELVIS: Appendix: The appendix is normal. Bladder: Slight urinary bladder wall thickening could be due to a completely distended status versus cystitis. Reproductive: Unremarkable as visualized. ABDOMEN and PELVIS: Intraperitoneal space: There is enlargement of the left ovary measuring up to 4 cm with a probable 1.7 cm follicle within it. There is a small moderate of free fluid in the cul-de-sac. Consider ruptured ovarian follicle. No free air. Bones/joints: No acute fracture. No dislocation. Soft tissues: Unremarkable. Vasculature: Unremarkable. No abdominal aortic aneurysm. Lymph nodes: Unremarkable. No enlarged lymph nodes. IMPRESSION: 1. Bowel loops are nondilated. Colon is mostly contracted with mild diffuse wall thickening suggesting mild colitis. The stomach is unremarkable. No GI hemorrhage is identified. 2. There is enlargement of the left ovary measuring up to 4 cm with a probable 1.7 cm follicle within it. There is a small amount of free fluid in the cul-de-sac. Consider ruptured ovarian follicle. 3. Slight urinary bladder wall thickening could be due to a completely distended status versus cystitis. Electronically signed by: Howard Hercules MD 01/03/23 22:05 PM
[2023-01-03] MEDS ORDERED: ONDANSETRON INJ 2 MG/ML 2 ML VIAL IV STA (22:39)
[2023-01-03] MEDS ORDERED: ONDANSETRON INJ 2 MG/ML 2 ML VIAL ONE (22:40)
[2023-01-04] MEDS: PANTOprazole 40 MG in DEXTROSE 5% 100 ML IV SCH ×5 (00:09→20:42)
[2023-01-04 01:54] LABS: Basophils # (auto) 0.03 K/uL (0-0.2); Basophils % (auto) 0.2 %; Hematocrit (blood only) 37.1 % (37.0-47.0); Hemoglobin 12.7 g/dl (12.0-16.0); Immature Granulocytes # (auto) 0.07 K/uL (0.01-0.20); Immature Granulocytes % (auto) 0.4 %; Lymphocytes # (auto) 1.28 K/uL (1.2-3.4); Lymphocytes % (auto) 7.8 %; Mean Corpuscular Hgb Conc 34.2 g/dL (32.0-36.0); Mean Corpuscular Volume 87.5 fL (80.0-100.0); Mean Platelet Volume 10.3 fL (9.4-12.4); Monocytes # (auto) 0.42 K/uL (0.11-0.59); Monocytes % (auto) 2.6 %; Neutrophils # (auto) 14.53 K/uL (1.40-6.50); Platelet Count 198 K/uL (130-400); RDW Coefficient of Variation 12.1 % (11.5-14.5); RDW Standard Deviation 39.3 fL (36.4-46.3); Red Blood Count 4.24 M/uL (4.20-5.40); White Blood Count 16.33 K/ul (4.8-10.8)
[2023-01-04 06:22] LABS: Alanine Aminotransferase 9 U/L (7-52); Albumin Globulin Ratio 1.8 (0.9-2); Albumin Level 4.4 gm/dl (3.4-5.0); Alkaline Phosphatase 53 U/L (34-104); Anion Gap 9 (3-11); Aspartate Aminotransferase 13 U/L (13-39); BUN Creatinine Ratio 20.5 (10-20); Bilirubin,Total 0.6 mg/dl (0.2-1.0); Blood Urea Nitrogen 8 mg/dl (6-23); Calcium 8.5 mg/dl (8.6-10.3); Carbon Dioxide 21 mmol/L (21-32); Chloride 103 mmol/L (98-107); Creatinine Clr Calc Pharmacy 191.8 ml/min; Est GFR (African American) > 150.0 ml/min; Est GFR (Non-African American) 149.1 ml/min; Globulin 2.4 gm/dl (2.5-4.0); Glucose 114 mg/dl (70-99(Fasting)); Magnesium 1.7 mg/dl (1.7-2.4); Potassium 3.6 mmol/L (3.5-5.1); Sodium 133 mmol/L (136-145); Total Protein 6.8 gm/dl (6.0-8.3)
[2023-01-04 06:27] LABS: Hematocrit (blood only) 35.3 % (37.0-47.0); Hemoglobin 12.4 g/dl (12.0-16.0); Mean Corpuscular Hgb Conc 35.1 g/dL (32.0-36.0); Mean Corpuscular Volume 85.5 fL (80.0-100.0); Mean Platelet Volume 10.2 fL (9.4-12.4); Platelet Count 217 K/uL (130-400); RDW Coefficient of Variation 12.1 % (11.5-14.5); RDW Standard Deviation 37.5 fL (36.4-46.3); Red Blood Count 4.13 M/uL (4.20-5.40); White Blood Count 15.57 K/ul (4.8-10.8)
[2023-01-04 06:37] LABS: INR 1.1 (0.9-1.1); Prothrombin Time 12.2 Seconds (9.0-12.0)
[2023-01-04 06:55] LABS: Basophils # (auto) 0.03 K/uL (0-0.2); Basophils % (auto) 0.2 %; Immature Granulocytes # (auto) 0.08 K/uL (0.01-0.20); Immature Granulocytes % (auto) 0.5 %; Lymphocytes # (auto) 0.97 K/uL (1.2-3.4); Lymphocytes % (auto) 6.2 %; Monocytes # (auto) 0.38 K/uL (0.11-0.59); Monocytes % (auto) 2.4 %; Neutrophils # (auto) 14.11 K/uL (1.40-6.50); Neutrophils % (auto) 90.7 %; RBC Morphology Unremarkable
[2023-01-04] MEDS: D5W AND NSS 1,000 ML IV SCH ×2 (07:58→17:16)
--- NOTE | 2023-01-04 08:49 | XRay Report ---
XR chest 1V portable CLINICAL HISTORY: GI bleed COMPARISON STUDY: No previous studies for comparison. FINDINGS: Lung volumes are normal. Lungs are clear. There is no pneumothorax or pleural effusion. Car diac size is normal. Mediastinal contours are normal. There is no evidence for pulmonary edema. IMPRESSION: No acute cardiopulmonary findings. ACT 112: Negative or not required by law. Electronically signed by: Gerardo Marquez M.D. 01/04/2023 8:47 AM
--- NOTE | 2023-01-04 10:37 | Gastrointestinal Consultation ---
Date of Consultation January 04, 2023 Assessment & Plan (1) Leukocytosis: (2) Melena: (3) Abnormal CT scan, colon: Plan Patient is a 22 y.o. female admitted with n/v and black stools with findings of leukocytosis and diffuse colonic wall thickening on CT. Diff dx: viral enteritis vs IBD vs other. 1. Clear liquid diet today. 2. MiraLAX/Gatorade bowel prep this evening. 3. NPO except medications after midnight. 4. EGD and colonoscopy with Dr. Galvez tomorrow for further evaluation. 5. Continue PPI ggt at 8 mg/hr. 6. Continue supportive care. Further recommendations will be made pending results of testing. Thank you for allowing us to participate in the care of this patient. If you have any questions or concerns, please do not hesitate to contact us. Supervising Physician Co-Signing Physician Notes Agree with TIGIST Estrada as above Abd: Soft, NT, ND, +BS Continue current therapy and supportive care Proceed with EGD and colonoscopy tomorrow. History of Present Illness Reason for Consultation: UGIB Requesting Physician: Martínez Mendenhall PA-C Attending Physician: Norbert Macias MD History of Present Illness Patient is a 22 y.o. female who reports she was in her usual state of health until 2 days ago. At that time, she developed a sudden onset of nausea with vomiting and black, coffee ground stools. Concerned she presented to the ER yesterday for further evaluation. She denies any suspicious consumption, takes no prescribed or OTC medications (including NSAIDs), or other known triggers. +marijuana use. Labs from this morning reviewed and she was found to have a mild leukocytosis of 15.57, hemoglobin 12.4, hematocrit 35.3 and platelets 217. Biofire was negative. BUN 8. CT a/p with IV enhancement demonstrated mild, diffuse colonic wall thickening suggestive of a mild colitis. Currently, the patient states she is not having any abdominal pain. +nausea. Last emesis was last evening. Continues with black and coffee-ground stools. States she has passed 2-3 bms overnight with some fecal urgency and occurred while passing urine as well. No family history of IBD or GI malignancy to her knowledge although she reports her family history from her father's side is unknown. 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 Beliefs That Will Affect Care: None Current Living Situation: Alone Other Information That Helps Us Care for You: No Feels Safe at Home: Yes Safety Concerns: Feels Safe At This Time Assistive Devices: None Review of Systems Review of Systems: All systems reviewed & are unremarkable except as noted in HPI & below Physical Exam Constitutional: WD/WN, vitals as above Eyes: EOM intact bilaterally Neck: normal appearance Respiratory: normal respiratory effort, lungs clear to auscultation Cardiovascular: Rate/Rhythm: regular rate and regular rhythm Heart Sounds: no gallop and no murmur Gastrointestinal (Abdomen): normal bowel sounds, soft, nontender, no he patosplenomegaly Inspection/Auscultation: abdomen not distended Musculoskeletal: Extremities: no cyanosis no lower extremity edema Skin: no rashes, warm and dry Neurologic: moves all extremities Psychiatric: A+Ox3, euthymic affect Results & Data Vital Signs (Past 12 Hours) Vital Signs Temp Pulse Pulse Resp BP BP Pulse Ox 01/04/23 08:18 62 01/04/23 07:54 36.9 C 65 16 127/82 100 01/04/23 02:56 36.5 C 81 16 136/80 96 01/04/23 00:25 64 01/03/23 23:17 36.4 C L 62 14 124/74 96 01/03/23 22:30 75 17 100/67 100 O2 Del Method 01/04/23 08:18 01/04/23 07:54 Room Air 01/04/23 02:56 Room Air 01/04/23 00:25 01/03/23 23:17 Room Air 01/03/23 22:30 Room Air Diagnostic Findings Laboratory Results WBC 15.57 K/ul (4.8-10.8) H 01/04/23 05:38 RBC 4.13 M/uL (4.20-5.40) L 01/04/23 05:38 Hgb 12.4 g/dl (12.0-16.0) 01/04/23 05:38 Hct 35.3 % (37.0-47.0) L 01/04/23 05:38 MCV 85.5 fL (80.0-100.0) 01/04/23 05:38 MCH 30.0 pg (25.0-34.0) 01/04/23 05:38 MCHC 35.1 g/dL (32.0-36.0) 01/04/23 05:38 RDW Std Deviation 37.5 fL (36.4-46.3) 01/04/23 05:38 RDW Coeff of Geri 12.1 % (11.5-14.5) 01/04/23 05:38 Plt Count 217 K/uL (130-400) 01/04/23 05:38 MPV 10.2 fL (9.4-12.4) 01/04/23 05:38 Immature Gran % (Auto) 0.5 % 01/04/23 05:38 Neut % (Auto) 90.7 % 01/04/23 05:38 Lymph % (Auto) 6.2 % 01/04/23 05:38 [place] % (Auto) 2.4 % 01/04/23 05:38 Eos % (Auto) 0.0 % 01/04/23 05:38 Baso % (Auto) 0.2 % 01/04/23 05:38 Neut # (Auto) 14.11 K/uL (1.40-6.50) H 01/04/23 05:38 Lymph # (Auto) 0.97 K/uL (1.2-3.4) L 01/04/23 05:38 [place] # (Auto) 0.38 K/uL (0.11-0.59) 01/04/23 05:38 Eos # (Auto) 0.00 K/uL (0-0.50) 01/04/23 05:38 Baso # (Auto) 0.03 K/uL (0-0.2) 01/04/23 05:38 Immature Gran # (Auto) 0.08 K/uL (0.01-0.20) 01/04/23 05:38 RBC Morphology Unremarkable 01/04/23 05:38 PT 12.2 Seconds (9.0-12.0) H 01/04/23 05:38 INR 1.1 (0.9-1.1) 01/04/23 05:38 Sodium 133 mmol/L (136-145) L 01/04/23 05:43 Potassium 3.6 mmol/L (3.5-5.1) 01/04/23 05:43 Chloride 103 mmol/L (98-107) 01/04/23 05:43 Carbon Dioxide 21 mmol/L (21-32) 01/04/23 05:43 Anion Gap 9 (3-11) 01/04/23 05:43 BUN 8 mg/dl (6-23) 01/04/23 05:43 Creatinine 0.39 mg/dl (0.6-1.2) L 01/04/23 05:43 Est Cr Clr Drug Dosing 191.8 ml/min 01/04/23 05:43 Est GFR ( Amer) > 150.0 ml/min 01/04/23 05:43 Est GFR (Non-Af Amer) 149.1 ml/min 01/04/23 05:43 BUN/Creatinine Ratio 20.5 (10-20) H 01/04/23 05:43 Glucose 114 mg/dl (70-99(Fasting)) H 01/04/23 05:43 Calcium 8.5 mg/dl (8.6-10.3) L 01/04/23 05:43 Magnesium 1.7 mg/dl (1.7-2.4) 01/04/23 05:43 Total Bilirubin 0.6 mg/dl (0.2-1.0) 01/04/23 05:43 AST 13 U/L (13-39) 01/04/23 05:43 ALT 9 U/L (7-52) 01/04/23 05:43 Alkaline Phosphatase 53 U/L (34-104) 01/04/23 05:43 Total Protein 6.8 gm/dl (6.0-8.3) 01/04/23 05:43 Albumin 4.4 gm/dl (3.4-5.0) 01/04/23 05:43 Globulin 2.4 gm/dl (2.5-4.0) L 01/04/23 05:43 Albumin/Globulin Ratio 1.8 (0.9-2) 01/04/23 05:43 Lipase 6 U/L (11-82) L 01/03/23 18:45 HCG, Qual Negative (Negative) 01/03/23 18:45 Urine Color Yellow 01/03/23 20:11 Urine Appearance Cloudy (Clear) A 01/03/23 20:11 Urine pH 6.0 (4.5-7.5) 01/03/23 20:11 Ur Specific [place] 1.018 (1.000-1.030) 01/03/23 20:11 Urine Protein Negative (Negative) 01/03/23 20:11 Urine Glucose (UA) Negative (Negative) 01/03/23 20:11 Urine Ketones 2+ (Negative) H 01/03/23 20:11 Urine Blood Trace (Negative) H 01/03/23 20:11 Urine Nitrite Negative (Negative) 01/03/23 20:11 Urine Bilirubin Negative (Negative) 01/03/23 20:11 Urine Urobilinogen Negative (Negative) 01/03/23 20:11 Ur Leukocyte Esterase Negative (Negative) 01/03/23 20:11 Urine WBC (Auto) 1-5 /hpf (0-5) 01/03/23 20:11 Urine RBC (Auto) 0-4 /hpf (0-4) 01/03/23 20:11 U Hyaline Cast (Auto) 0 /lpf (0-5) 01/03/23 20:11 U Epithel Cells (Auto) >30 /lpf (0-5) H 01/03/23 20:11 Urine Bacteria (Auto) Negative (Negative) 01/03/23 20:11 POC Ur Test Cancelled 01/03/23 19:21 Stl C. cayetanensis PCR Not Detected (NotDetected) 01/03/23 20:11 Stool Rotavirus A PCR Not Detected (NotDetected) 01/03/23 20:11 Stl Adenov F 40/41 PCR Not Detected (NotDetected) 01/03/23 20:11 Stool Astrovirus (PCR) Not Detected (NotDetected) 01/03/23 20:11 Stool Campylobacter PCR Not Detected (NotDetected) 01/03/23 20:11 Stool Cryptosporidium PCR Not Detected (NotDetected) 01/03/23 20:11 Stl E.coli Shiga Tox PCR Not Detected (NotDetected) 01/03/23 20:11 Stl Enterotoxigenic E PCR Not Detected (NotDetected) 01/03/23 20:11 Stool EPEC (PCR) Not Detected (NotDetected) 01/03/23 20:11 Stool EAEC (PCR) Not Detected (NotDetected) 01/03/23 20:11 Stl E. histolytica PCR Not Detected (NotDetected) 01/03/23 20:11 Stool Giardia Lamblia PCR Not Detected (NotDetected) 01/03/23 20:11 Stool Salmonella PCR Not Detected (NotDetected) 01/03/23 20:11 Stool Sapovirus (PCR) Not Detected (NotDetected) 01/03/23 20:11 Stl P. shigelloides PCR Not Detected (NotDetected) 01/03/23 20:11 Stl Shigella/EIEC PCR Not Detected (NotDetected) 01/03/23 20:11 St Y.enterocolitica PCR Not Detected (NotDetected) 01/03/23 20:11 Stool Vibrio (PCR) Not Detected (NotDetected) 01/03/23 20:11 Stl Vibrio cholerae PCR Not Detected (NotDetected) 01/03/23 20:11 Stl Norovirus GI/GII PCR Not Detected (NotDetected) 01/03/23 20:11 SARS-CoV-2, RNA, NAAT NEGATIVE (NEGATIVE) 01/03/23 21:39 Blood Type O Positive 01/03/23 19:47 Antibody Screen NEGATIVE 01/03/23 19:47 Crossmatch See Detail 01/03/23 19:47 Impressions Abdomen/Pelvis CT 01/03/23 19:11 Exam(s): CT ABDOMEN + PELVIS With Contrast IV Amt: 89 ml optiray 320 EXAM: CT Abdomen and Pelvis With Intravenous Contrast CLINICAL HISTORY: Reason for exam: Vomiting blood upper GI bleed. TECHNIQUE: Axial computed tomography images of the abdomen and pelvis with intravenous contrast. CTDI is 8.51 mGy and DLP is 370.12 mGy-cm. Automated exposure control was utilized for the study. A dose lowering technique was utilized adhering to the principles of ALARA. CONTRAST: Patient received 89 ml optiray 320 of IV contrast COMPARISON: No relevant prior studies available. FINDINGS: Lung bases: Unremarkable. No mass. No consolidation. ABDOMEN: Liver: Unremarkable. No mass. Gallbladder and bile ducts: Unremarkable. No calcified stones. No ductal dilation. Pancreas: Unremarkable. No mass. No ductal dilation. Spleen: Unremarkable. No splenomegaly. Adrenals: Unremarkable. No mass. Kidneys and ureters: There are several scattered simple cysts within the kidneys measuring up to 2.1 cm on the right. No follow-up is required. No hydronephrosis. Stomach and bowel: Bowel loops are nondilated. Colon is mostly contracted with mild diffuse wall thickening suggesting mild colitis. The stomach is unremarkable. PELVIS: Appendix: The appendix is normal. Bladder: Slight urinary bladder wall thickening could be due to a completely distended status versus cystitis. Reproductive: Unremarkable as visualized. ABDOMEN and PELVIS: Intraperitoneal space: There is enlargement of the left ovary measuring up to 4 cm with a probable 1.7 cm follicle within it. There is a small moderate of free fluid in the cul-de-sac. Consider ruptured ovarian follicle. No free air. Bones/joints: No acute fracture. No dislocation. Soft tissues: Unremarkable. Vasculature: Unremarkable. No abdominal aortic aneurysm. Lymph nodes: Unremarkable. No enlarged lymph nodes. IMPRESSION: 1. Bowel loops are nondilated. Colon is mostly contracted with mild diffuse wall thickening suggesting mild colitis. The stomach is unremarkable. No GI hemorrhage is identified. 2. There is enlargement of the left ovary measuring up to 4 cm with a probable 1.7 cm follicle within it. There is a small amount of free fluid in the cul-de-sac. Consider ruptured ovarian follicle. 3. Slight urinary bladder wall thickening could be due to a completely distended status versus cystitis. Electronically signed by: Howard Hercules MD 01/03/23 22:05 PM Chest X-Ray 01/04/23 07:54 XR chest 1V portable CLINICAL HISTORY: GI bleed COMPARISON STUDY: No previous studies for comparison. FINDINGS: Lung volumes are normal. Lungs are clear. There is no pneumothorax or pleural effusion. Cardiac size is normal. Mediastinal contours are normal. There is no evidence for pulmonary edema. IMPRESSION: No acute cardiopulmonary findings. ACT 112: Negative or not required by law. Electronically signed by: Gerardo Marquez M.D. 01/04/2023 8:47 AM PG Care Time/CCT Total # of Minutes Spent Total Time Spent with Patient: Total time spent is greater than 50% in coordination of care (as documented) at patient's floor/unit and/or counseling patient: Coding Level of Care Code 58909 OFFICE CONSULT LVL M Diagnoses Leukocytosis D72.[address] scan, colon R93.3
--- NOTE | 2023-01-04 12:43 | Hospitalist Progress Note ---
Date of Service January 04, 2023 Assessment & Plan (1) GI bleed: Plan: Suspect upper GI bleed producing melena. Gastroenterology consultation and recommendations appreciated. She remains on Protonix drip. Upper endoscopy and colonoscopy will be performed tomorrow, January 05. Serial H&H ordered. Abdomen/pelvis CT scan results noted. (2) Leukocytosis: Plan: Probably reactive. No signs of infection. Serial labs Plan Anticipate eventual discharge to home. Hopefully this weekend Admission and Anticipated Discharge Date Admission Date: January 03, 2023 Subjective Alert and oriented. No acute distress. She has been seen by gastroenterology. She is now on a clear liquid diet along with IV fluids. Upper and lower endo scopy will be performed tomorrow, January 05. Hemoglobin is stable at 12.4. Review of Systems Review of Systems: Constitutional-no fever or chills ENT-no blurred vision, no double vision, no epistaxis, no sore throat Respiratory-no cough, no wheezing, no shortness of breath Cardiac-no palpitations, no chest pain, no syncope GI-no nausea, vomiting, diarrhea, hematochezia. Recent development of melena however -no urinary retention, no urinary incontinence, no dysuria, no hematuria Musculoskeletal-no joint pain, no muscle tenderness Skin-no bruising, no rashes, no pruritus Neuro-no isolated weakness, no paresthesia, no weakness Psych-no depression, no anxiety Physical Exam Physical Exam: General-alert and oriented x3, no fevers, no chills HEENT-head atraumatic and normocephalic, pupils equal and reactive to light, extraocular muscles intact Neck-no lymphadenopathy or thyromegaly, trachea midline Chest-clear to auscultation percussion. No rales wheezing or rhonchi Cardiac-regular rate and rhythm, normal S1 and S2, no murmurs Abdomen-normal bowel sounds, no hepatosplenomegaly. Nondistended. Mild epigastric tenderness without rebound or guarding Extremities-no cyanosis, clubbing, or edema Neuro-cranial nerves II through XII intact, motor and sensory function within normal limits, strength symmetrical , no focal deficits Psych-normal affect, normal mood Results & Data Results & Data Vital Signs (Past 12 Hours) Vital Signs Temp Pulse Pulse Resp BP Pulse Ox O2 Del Method 01/04/23 11:58 36.9 C 69 16 105/69 99 Room Air 01/04/23 08:18 62 01/04/23 07:54 36.9 C 65 16 127/82 100 Room Air 01/04/23 02:56 36.5 C 81 16 136/80 96 Room Air Laboratory Results 01/04/23 05:38 01/04/23 05:43 PG Care Time/CCT Total # of Minutes Spent Total Time Spent with Patient: Total time spent is greater than 50% in coordination of care (as documented) at patient's floor/unit and/or counseling patient: Coding Level of Care Code 25390 SUB INP/OBS CARE 3/50MIN Diagnoses GI bleed K92.2 Leukocytosis D72.829
--- NOTE | 2023-01-04 19:26 | Electrocardiogram Report ---
Test Reason : Blood Pressure : / mmHG Vent. Rate : 060 BPM Atrial Rate : 060 BPM P-R Int : 116 ms QRS Dur : 084 ms QT Int : 444 ms P-R-T Axes : 036 092 061 degrees QTc Int : 444 ms Normal sinus rhythm Rightward axis Borderline ECG No previous ECGs available Confirmed by Magdy Espinoza ([id number]) on 01/04/2023 7:26:11 PM Referred By: REFERRED SELF Confirmed By:Peter Espinoza
[2023-01-04] MEDS: ONDANSETRON INJ 2 MG/ML 2 ML VIAL IV PRN (20:06)
[2023-01-05] MEDS: PANTOprazole 40 MG in DEXTROSE 5% 100 ML IV SCH ×3 (01:47→11:47)
[2023-01-05 04:56] LABS: Basophils # (auto) 0.02 K/uL (0-0.2); Basophils % (auto) 0.2 %; Eosinophils # (auto) 0.02 K/uL (0-0.50); Eosinophils % (auto) 0.2 %; Hematocrit (blood only) 34.3 % (37.0-47.0); Hemoglobin 11.8 g/dl (12.0-16.0); Immature Granulocytes # (auto) 0.03 K/uL (0.01-0.20); Immature Granulocytes % (auto) 0.3 %; Lymphocytes % (auto) 27.2 %; Mean Corpuscular Hemoglobin 29.9 pg (25.0-34.0); Mean Corpuscular Hgb Conc 34.4 g/dL (32.0-36.0); Mean Corpuscular Volume 86.8 fL (80.0-100.0); Mean Platelet Volume 10.3 fL (9.4-12.4); Monocytes # (auto) 0.88 K/uL (0.11-0.59); Monocytes % (auto) 9.2 %; Neutrophils # (auto) 6.02 K/uL (1.40-6.50); Neutrophils % (auto) 62.9 %; Platelet Count 212 K/uL (130-400); RDW Coefficient of Variation 12.4 % (11.5-14.5); RDW Standard Deviation 39.2 fL (36.4-46.3); Red Blood Count 3.95 M/uL (4.20-5.40); White Blood Count 9.57 K/ul (4.8-10.8)
[2023-01-05 05:14] LABS: Anion Gap 6 (3-11); Blood Urea Nitrogen 7 mg/dl (6-23); Calcium 8.5 mg/dl (8.6-10.3); Carbon Dioxide 24 mmol/L (21-32); Chloride 109 mmol/L (98-107); Creatinine Clr Calc Pharmacy 138.5 ml/min; Est GFR (African American) > 150.0 ml/min; Est GFR (Non-African American) 133.9 ml/min; Glucose 103 mg/dl (70-99(Fasting)); Potassium 3.2 mmol/L (3.5-5.1); Sodium 139 mmol/L (136-145)
[2023-01-05] MEDS: D5W AND NSS 1,000 ML IV SCH (07:54)
[2023-01-05] MEDS ORDERED: D5NSS + 20MEQ KCL 20 MEQ/1,000 ML BAG IV SCH (10:00)
--- NOTE | 2023-01-05 11:20 | History & Physical Bridge Note ---
Date of Service January 05, 2023 History & Physical Bridge Note I have examined the patient, reviewed the History & Physical and in the interval since the performance of the History & Physical I have noted the following changes of clinical significance: patient completed bowel preparation. Passing clear liquid stools. No significant abdominal pain or rectal bleeding. H&H 11.8/34.3. PE: A&Ox3. RRR. Lungs CTA bilaterally. Abdomen soft, non-distended. Normal bowel sounds. Normal extremities. A/P: Patient is a 22 y.o. female with melena and CT imaging suggestive of diffuse colonic colitis. -NPO. -Proceed with EGD and colonoscopy as scheduled. -Continue PPI ggt. -Further recommendations pending results of testing. Supervising Physician Co-Signing Physician Notes Agree with TIGIST Estrada as above Abd: Soft, NT, ND, +BS Continue current therapy and supportive care Proceed with EGD and colonoscopy now
--- NOTE | 2023-01-05 12:23 | Anesthesiology Consultation ---
Date of Service January 05, 2023 Assessment & Plan Chart Review Chart Review: Acceptable Risk for Surgery and Patient NOT seen in Pre Admission Testing History Surgery Operation Date: 01/05/23 16:30 Proposed Procedures p Colonoscopy EGD Dr. Lenny Galvez, DO Height/Weight Height: 5 ft 5 in Weight: 53.1 kg Allergies Allergy/AdvReac Type Severity Reaction Status Date / Time gabapentin AdvReac Insomnia Verified 01/03/23 22:46 Medications Home Medications Medication Instructions Recorded Confirmed Last Taken No Known Home Medications 01/03/23 01/03/23 Unknown Active Medications Generic Name Dose Route Start Last Admin Trade Name Freq PRN Reason Stop Dose Admin Pantoprazole Sodium 40 mg/ 100 mls @ 20 mls/hr 01/03/23 19:30 01/05/23 11:47 Dextrose IV 02/02/23 19:29 8 mg/hr Q5H DEENA 20 mls/hr Administration 8 MG/HR Potassium Chloride/Dextrose/Sod Cl 20 meq in 1,000 mls @ 60 mls/hr 01/05/23 10:00 01/05/23 11:49 D5nss + 20meq Kcl IV 02/04/23 09:59 60 mls/hr .[id number] DEENA Administration Protocol Ondansetron HCl 4 mg 01/03/23 23:05 01/04/23 20:06 Ondansetron Inj 2 Mg/Ml 2 Ml Vial IV 02/02/23 23:04 4 mg Q6H PRN Administration Nausea And Vomiting Social History Smoking Status: Current every day smoker tobacco type: cigarettes Do You Dip or Chew Tobacco: No Hx Alcohol Use: Yes Alcohol type: beer alcohol intake frequency: 0-2 drinks per day Hx Substance Use: Yes substance use type: marijuana Physical Exam Vital Signs Last Vital Signs Temp 36.9 C 01/05/23 12:16 Pulse 81 01/05/23 12:16 Resp 17 01/05/23 12:16 BP 106/60 01/05/23 12:16 Pulse Ox 100 01/05/23 12:16 O2 Del Method Room Air 01/05/23 12:16 Testing Laboratory Results 01/05/23 04:04 01/05/23 04:04 PT 12.2 Seconds (9.0-12.0) H 01/04/23 05:38 INR 1.1 (0.9-1.1) 01/04/23 05:38 Urine Color Yellow 01/03/23 20:11 Urine Appearance Cloudy (Clear) A 01/03/23 20:11 Urine pH 6.0 (4.5-7.5) 01/03/23 20:11 Ur Specific [place] 1.018 (1.000-1.030) 01/03/23 20:11 Urine Protein Negative (Negative) 01/03/23 20:11 Urine Glucose (UA) Negative (Negative) 01/03/23 20:11 Urine Ketones 2+ (Negative) H 01/03/23 20:11 Urine Nitrite Negative (Negative) 01/03/23 20:11 Ur Leukocyte Esterase Negative (Negative) 01/03/23 20:11 Urine WBC (Auto) 1-5 /hpf (0-5) 01/03/23 20:11 Urine RBC (Auto) 0-4 /hpf (0-4) 01/03/23 20:11 U Hyaline Cast (Auto) 0 /lpf (0-5) 01/03/23 20:11 U Epithel Cells (Auto) >30 /lpf (0-5) H 01/03/23 20:11 Urine Bacteria (Auto) Negative (Negative) 01/03/23 20:11 Blood Type O Positive 01/03/23 19:47 Antibody Screen NEGATIVE 01/03/23 19:47 01/03/23 19:21 POC Ur Test Cancelled
--- NOTE | 2023-01-05 12:43 | Hospitalist Progress Note ---
Date of Service January 05, 2023 Assessment & Plan (1) GI bleed: Plan: Suspect upper GI bleed producing melena. Gastroenterology consultation and recommendations appreciated. She remains on Protonix. Upper endoscopy and colonoscopy will be performed later today, January 05. Serial H&H ordered. Abdomen/pelvis CT scan results noted. (2) Leukocytosis: Plan: Probably reactive. No signs of infection. Serial labs Plan Anticipate eventual discharge to home. Hopefully tomorrow, January 06 Admission and Anticipated Discharge Date Admission Date: January 03, 2023 Subjective Alert and oriented. No distress. Hemoglobin stable at 11.8. She is awaiting upper and lower endoscopy later today. Hopefully she will be able to go home tomorrow, January 06 Review of Systems Review of Systems: Constitutional-no fever or chills ENT-no blurred vision, no double vision, no epistaxis, no sore throat Respiratory-no cough, no wheezing, no shortness of breath Cardiac-no palpitations, no chest pain, no syncope GI-no nausea, vomiting, diarrhea, hematochezia. Recent development of melena however -no urinary retention, no urinary incontinence, no dysuria, no hematuria Musculoskeletal-no joint pain, no muscle tenderness Skin-no bruising, no rashes, no pruritus Neuro-no isolated weakness, no paresthesia, no weakness Psych-no depression, no anxiety Physical Exam Physical Exam: General-alert and oriented x3, no fevers, no chills HEENT-head atraumatic and normocephalic, pupils equal and reactive to light, extraocular muscles intact Neck-no lymphadenopathy or thyromegaly, trachea midline Chest-clear to auscultation percussion. No rales wheezing or rhonchi Cardiac-regular rate and rhythm, normal S1 and S2, no murmurs Abdomen-normal bowel sounds, no hepatosplenomegaly. Nondistended. Mild epigastric tenderness without rebound or guarding Extremities-no cyanosis, clubbing, or edema Neuro-cranial nerves II through XII intact, motor and sensory function within normal limits, strength symmetrical , no focal deficits Psych-normal affect, normal mood Results & Data Results & Data Vital Signs (Past 12 Hours) Vital Signs Temp Pulse Resp BP Pulse Ox O2 Del Method 01/05/23 12:16 36.9 C 81 17 106/60 100 Room Air 01/05/23 12:18 37.5 C 83 16 121/58 L 100 Room Air 01/05/23 08:09 36.8 C 76 17 109/61 98 Room Air 01/05/23 04:09 36.5 C 61 20 102/62 98 Room Air Laboratory Results 01/05/23 04:04 01/05/23 04:04 PG Care Time/CCT Total # of Minutes Spent Total Time Spent with Patient: Total time spent is greater than 50% in coordination of care (as documented) at patient's floor/unit and/or counseling patient: Coding Level of Care Code 39316 SUB INP/OBS CARE 2/35MIN Diagnoses GI bleed K92.2 Leukocytosis D72.829
[2023-01-05] MEDS ORDERED: LIDOCAINE 2% 2 ML VIAL/AMP(20MG/ML) INFIL ONE (12:45)
[2023-01-05] MEDS ORDERED: PROPOFOL IV EMULSION 10 MG/ML 20 ML VIAL IV ONE ×2 (12:45→13:27)
[2023-01-05] MEDS ORDERED: PHENYLEPHRINE 100MCG/ML 5ML SYR ONE (13:32)
--- NOTE | 2023-01-05 13:34 | GI REPORT ---
Patient Name: Inga Garcia Procedure Date: 01/05/2023 1:00 PM Date of : 2000 Admit Type: Inpatient Age: 22 Gender: Female Attending MD: Kojo Galvez DO, Procedure: Colonoscopy Providers: Kojo Galvez DO Referring MD: Referred Self Indications: Gastrointestinal bleeding Medicines: Monitored Anesthesia Care Complications: No immediate complications. Estimated Blood Loss: Estimated blood loss: none. Procedure: Pre-Anesthesia Assessment: - Prior to the procedure, a History and Physical was performed, and patient medications and allergies were reviewed. The patient's tolerance of previous anesthesia was also reviewed. The risks and benefits of the procedure and the sedation options and risks were discussed with the patient. All questions were answered, and informed consent was obtained. Prior Anticoagulants: The patient has taken no anticoagulant or antiplatelet agents. ASA Grade Assessment: II - A patient with mild systemic disease. After reviewing the risks and benefits, the patient was deemed in satisfactory condition to undergo the procedure. After I obtained informed consent, the scope was passed under direct vision. Throughout the procedure, the patient's blood pressure, pulse, and oxygen saturations were monitored continuously. The Colonoscope was introduced through the anus and advanced to the terminal ileum. The colonoscopy was performed without difficulty. The patient tolerated the procedure well. The quality of the bowel preparation was good. The terminal ileum, ileocecal valve, appendiceal orifice, and rectum were photographed. Findings: The perianal and digital rectal examinations were normal. The colon (entire examined portion) appeared normal. Impression: - The entire examined colon is normal. - No specimens collected. Recommendation: - Resume previous diet. - Continue present medications. - Repeat colonoscopy at age 45 for surveillance. - Return to primary care physician as previously scheduled. Kojo Galvez DO 01/05/2023 1:33:50 PM This report has been signed electronically. Note Initiated On: 01/05/2023 1:00 PM Number of Addenda: 0 I attest to the content of the Intraoperative Record and orders documented therein, exceptions below {[id number]}
--- NOTE | 2023-01-05 13:35 | GI REPORT ---
Patient Name: Inga Garcia Procedure Date: 01/05/2023 1:01 PM Date of : 2000 Admit Type: Inpatient Age: 22 Gender: Female Attending MD: Kojo Galvez DO, Procedure: Upper GI endoscopy Providers: Kojo Galvez DO Referring MD: Referred Self Indications: Gastrointestinal bleeding of unknown origin Medicines: Monitored Anesthesia Care Complications: No immediate complications. Estimated Blood Loss: Estimated blood loss: none. Procedure: Pre-Anesthesia Assessment: - Prior to the procedure, a History and Physical was performed, and patient medications and allergies were reviewed. The patient's tolerance of previous anesthesia was also reviewed. The risks and benefits of the procedure and the sedation options and risks were discussed with the patient. All questions were answered, and informed consent was obtained. Prior Anticoagulants: The patient has taken no anticoagulant or antiplatelet agents. ASA Grade Assessment: II - A patient with mild systemic disease. After reviewing the risks and benefits, the patient was deemed in satisfactory condition to undergo the procedure. After obtaining informed consent, the endoscope was passed under direct vision. Throughout the procedure, the patient's blood pressure, pulse, and oxygen saturations were monitored continuously. The Colonoscope was introduced through the mouth, and advanced to the third part of duodenum. The upper GI endoscopy was accomplished without difficulty. The patient tolerated the procedure well. Findings: The examined esophagus was normal. Localized mild inflammation characterized by erythema was found in the gastric antrum. Biopsies were taken with a cold forceps for histology. The examined duodenum was normal. Impression: - Normal esophagus. - Gastritis. Biopsied. - Normal examined duodenum. Recommendation: - Resume previous diet. - Continue present medications. - Await pathology results. - Return to primary care physician as previously scheduled. Kojo Galvez DO 01/05/2023 1:35:10 PM This report has been signed electronically. Note Initiated On: 01/05/2023 1:01 PM Number of Addenda: 0 I attest to the content of the Intraoperative Record and orders documented therein, exceptions below {[id number]}
[2023-01-05] MEDS ORDERED: ONDANSETRON INJ 2 MG/ML 2 ML VIAL IV PRN (13:42)
--- NOTE | 2023-01-05 13:45 | Anesthesiology Progress Note ---
Date of Service January 05, 2023 Anesthesia Post Procedure Vital Signs Vital Signs: Temp Pulse Pulse Resp BP Pulse Ox O2 Del Method 01/05/23 13:30 50 L 16 95/50 L 99 Room Air 01/05/23 12:16 36.9 C 81 17 106/60 100 Room Air 01/05/23 12:18 37.5 C 83 16 121/58 L 100 Room Air 01/05/23 08:09 36.8 C 76 17 109/61 98 Room Air 01/05/23 04:09 36.5 C 61 20 102/62 98 Room Air 01/04/23 22:00 84 01/04/23 23:58 36.9 C 66 17 99/60 L 97 Room Air 01/04/23 19:56 36.7 C 80 17 102/64 98 Room Air 01/04/23 16:14 37.0 C 72 16 90/54 L 98 Room Air Pain Intensity Abdomen: Pain Intensity: 7 Transfer of Care Handoff Completed per policy Notes Mental Status: alert / awake / arousable and participated in evaluation Patient Amnestic to Procedure: Yes Nausea / Vomiting: adequately controlled Pain: adequately controlled Airway Patency, RR, SpO2: stable & adequate BP & HR: stable & adequate Hydration State: stable & adequate Anesthetic Complications: no major complications apparent and Pt Satisfied with anesthetic care
[2023-01-05] MEDS ORDERED: ONDANSETRON INJ 2 MG/ML 2 ML VIAL IV ONE (15:26)
[2023-01-05] MEDS: ONDANSETRON INJ 2 MG/ML 2 ML VIAL IV PRN ×2 (15:29→19:40)
[2023-01-05] MEDS: PANTOprazole 40 MG in SYRINGE 0 ML IV SCH (20:31)
[2023-01-06 04:59] LABS: Basophils # (auto) 0.03 K/uL (0-0.2); Basophils % (auto) 0.2 %; Eosinophils # (auto) 0.01 K/uL (0-0.50); Eosinophils % (auto) 0.1 %; Hematocrit (blood only) 33.4 % (37.0-47.0); Hemoglobin 11.8 g/dl (12.0-16.0); Immature Granulocytes # (auto) 0.06 K/uL (0.01-0.20); Immature Granulocytes % (auto) 0.5 %; Lymphocytes # (auto) 2.74 K/uL (1.2-3.4); Lymphocytes % (auto) 20.6 %; Mean Corpuscular Hemoglobin 30.1 pg (25.0-34.0); Mean Corpuscular Hgb Conc 35.3 g/dL (32.0-36.0); Mean Corpuscular Volume 85.2 fL (80.0-100.0); Mean Platelet Volume 10.3 fL (9.4-12.4); Monocytes # (auto) 1.14 K/uL (0.11-0.59); Monocytes % (auto) 8.6 %; Neutrophils # (auto) 9.34 K/uL (1.40-6.50); Platelet Count 216 K/uL (130-400); RDW Coefficient of Variation 12.4 % (11.5-14.5); RDW Standard Deviation 38.2 fL (36.4-46.3); Red Blood Count 3.92 M/uL (4.20-5.40); White Blood Count 13.32 K/ul (4.8-10.8)
[2023-01-06 05:15] LABS: Anion Gap 8 (3-11); BUN Creatinine Ratio 12.8 (10-20); Blood Urea Nitrogen 6 mg/dl (6-23); Calcium 9.1 mg/dl (8.6-10.3); Carbon Dioxide 25 mmol/L (21-32); Chloride 104 mmol/L (98-107); Creatinine Clr Calc Pharmacy 153.8 ml/min; Est GFR (African American) > 150.0 ml/min; Est GFR (Non-African American) 140.2 ml/min; Glucose 86 mg/dl (70-99(Fasting)); Potassium 3.1 mmol/L (3.5-5.1); Sodium 137 mmol/L (136-145)
[2023-01-06] MEDS: PANTOprazole 40 MG in SYRINGE 0 ML IV SCH (07:43)
[2023-01-06] MEDS ORDERED: PANTOprazole 40 MG TAB PO SCH (09:00)
[2023-01-06] MEDS ORDERED: POTASSIUM CHLORIDE CRTAB 20 MEQ TABCR PO STA (10:01)
--- NOTE | 2023-01-06 12:16 | Discharge Summary ---
Date of Service January 06, 2023 Admission HPI Per Admitting Provider Inga is a 22 year old female with with no significant PMH who presented to the [facility] ED on 01/03/23 with complaints of black stool and vomit. In the ED the patient was tachycardic with HR in the low 100's but otherwise stable. Labs were significant for a leukocytosis of 17 with left shift of 14, stable Hgb of 13, sodium of 134. Per discussions with the ED staff, the patient had approximately 500 cc of black emesis after arrival. They spoke with Gastroenterology who will see the patient tomorrow. Prior to admission all CT machines were down, a CT of the abd/pelvis with IV con had been ordered prior to admission. Prior to admission the patient was started on a Protonix drip, ordered 2L NSS bolus. At the time of the exam the patient was sitting in bed in no acute distress with her friend sitting bedside. The patient states that she was in her normal state of health. She was at work this afternoon when she started to develop epigastric abd pain, nausea, and diaphoresis. She went home and had two bowel movements which she described as watery and black. Her abd pain started in the epigastric region but has moved to the lower abdomen at the time of the exam. She denies a previous hx of GI bleeds, ulcers, or other PMH besides some mental health issues in the past. At one point she was on Lamictal, gabapentin, and Ativan, put is not on prescription medications at this time. She drinks alcohol socially, with her last drink 2 nights ago. She denies NSAID use or pepto Bismol use. She does smoke marijuana daily and states that she has been diagnosed with Cannabis hyperemesis in the past. She denies any other recreational drug use. She denies recent fever, chills, sore throat, chest pain, SOB, cough, dysuria, hematuria, LE swelling and recent trauma. Please refer to Dr. Hercules's attestation for any changes to the treatment plan Principal Diagnosis Melena, suspected upper GI bleeding, epigastric pain, hypokalemia Discharge Exam General-alert and oriented x3, no fevers, no chills HEENT-head atraumatic and normocephalic, pupils equal and reactive to light, extraocular muscles intact Neck-no lymphadenopathy or thyromegaly, trachea midline Chest-clear to auscultation percussion. No rales wheezing or rhonchi Cardiac-regular rate and rhythm, normal S1 and S2, no murmurs Abdomen-normal bowel sounds, no hepatosplenomegaly. Nondistended. Mild epigastric tenderness without rebound or guarding Extremities-no cyanosis, clubbing, or edema Neuro-cranial nerves II through XII intact, motor and sensory function within normal limits, strength symmetrical , no focal deficits Psych-normal affect, normal mood Discharge Data Allergies Allergy/AdvReac Type Severity Reaction Status Date / Time gabapentin AdvReac Insomnia Verified 01/05/23 12:31 Consultations 01/03/23 20:43 Consult Gastroenterology Routine 01/03/23 21:36 ED Decision to Admit Stat Procedures Performed Operation Date: 01/05/23 16:30 Actual Procedures p EGD Biopsy Cytology - Kojo Castellano. Case, DO s Colonoscopy - Kojo Castellano. Case, DO Ordered Studies 01/03/23 19:11 CT Abd and Pelvis [CT abd pelvis IV con only] Stat Hospital Course (1) GI bleed: Suspect upper GI bleed producing melena. Gastroenterology consultation and recommendations appreciated. She remains on Protonix. Upper endoscopy and colonoscopy normal. No active bleeding sites. Hemoglobin is stable. Abdomen/pelvis CT scan results noted. (2) Leukocytosis: Probably reactive. No signs of infection. Serial labs Plan Home today, January 06. We will continue Protonix temporarily Total Time Total Time Spent Total Time Spent (In Minutes): 40 minutes Discharge Plan Discharge Items Patient Disposition: Home - Self-Care Reason For Visit: GI BLEED Discharge Diagnosis: Melena, suspected upper GI bleed, epigastric pain, hypokalemia Activity: Resume your previous activity Non-emergency contact: Primary Care Provider Call non-emergency contact if: you have any medication questions Follow-up/Referrals: PCP,NO [Primary Care Provider] - Diet: Regular Addtl Attending Provider Instructions: Take Protonix (pantoprazole) daily for 2 weeks Pending Studies at Discharge: No Stand-Alone Forms: [employer], Smoking Cessation Medications and DC Order Prescriptions: New pantoprazole 40 mg Tablet,Delayed Release (Dr/Ec) 40 mg PO QAM Qty: 14 0RF Discharge Orders: Discharge Order (Routine); Ordered 01/06/23 Ordered By: Norbert Macias Admission Data Admit Date/Time: 01/03/23 20:30 Attending Provider: Norbert Macias Admit Provider: Na Hercules Primary Care Provider: PCP,NO Other Providers: Kojo Galvez ; Na Hercules Other Interventions: Discharge Summary Assessment (RN) Last Done: 01/05/23 13:50 Coding Level of Care Code 54258 INP/OBS DISCH >30 MIN Diagnoses GI bleed K92.2 Leukocytosis D72.829
== END 2023-01-06 13:02 | disposition home or self-care (01) | DRG 379 ==
LOC: ED 17:35 → 4W 20:30 → SUATTDRO 20:30 → 4W 22:57